=== PATIENT | female | born 1940 | race American Indian/Alaskan Native ===

== ENCOUNTER 2019-09-04 09:39 | Outpatient (CLI) | payer MEDICARE | END 2019-09-04 09:40 | disposition home or self-care (01) | LOC: PET 09:39 | PROVIDERS: ATTEND Internal Medicine | DX: R91.8 Other nonspecific abnormal finding of lung field (principal); I10 Essential (primary) hypertension; Z79.899 Other long term (current) drug therapy | CPT/HCPCS: 36415; 82947; 82962 ==